=== PATIENT | male | born 2000 | race Caucasian/White ===

== ENCOUNTER 2024-02-22 17:24 | Emergency (ER) | payer OTHER ==
[~2024-02-22] VITALS: Ht 180.3 cm; Wt 61.6 kg
[2024-02-22] MEDS ORDERED: droPERidol 5 MG/2 ML VIAL IV ONE (17:45)
[2024-02-22] MEDS ORDERED: SODIUM CHLORIDE 0.9% 1,000 ML IV ONE ×2 (17:45)
[2024-02-22] MEDS ORDERED: PANTOPRAZOLE SODIUM 40 MG/10 ML VIAL IV ONE (17:45)
[2024-02-22] MEDS ORDERED: ondansetron HCL 4 MG/2 ML VIAL IV ONE (17:45)
[2024-02-22 17:52] LABS: BASOPHILS 0.7 % (0-2); EOSINOPHILS 0.1 % (0-6); HEMATOCRIT 44.7 % (35.0-50.0); HEMOGLOBIN 15.1 g/dL (12.0-18.0); LYMPHOCYTES 6.4 % (24-44); MCH 29.3 (27-36); MCHC 33.8 g/dl (30-36); MCV 86.8 fl (81-99); MONOCYTES 3.1 % (0-12); NEUTROPHILS 89.7 % (39-80); PLATELET COUNT 206 K/uL (140-440); RBC 5.15 M/ul (4.3-5.7)
[2024-02-22 18:07] LABS: ALBUMIN/GLOBULIN RATIO 1.39 (1.1-2.4); ANION GAP 22.7 (7-21); BILIRUBIN, TOTAL 1.2 ng/dL (0.2-1.0); BUN/CREATININE RATIO 14.28 (6.0-28.6); CALCIUM 10.6 mg/dL (8.5-10.1); CREATININE, SERUM 1.4 mg/dL (0.70-1.30); MAGNESIUM 1.7 mg/dL (1.8-2.4); POTASSIUM 3.7 mmol/L (3.5-5.1); PROTEIN, TOTAL 8.6 g/dL (6.4-8.2)
[2024-02-22] MEDS ORDERED: ONDANSETRON 4 MG HOME.PACK SL ONE (19:15)
[2024-02-22] MEDS ORDERED: ONDANSETRON ODT8 MG PO (19:34)
[2024-02-22 19:43] VITALS: BP 133/86
== END 2024-02-22 19:44 | disposition home or self-care (01) ==
LOC: ED 17:24
PROVIDERS: Emergency Medicine
DX: K29.70 Gastritis, unspecified, without bleeding (principal)
CPT/HCPCS: 36415; 80053; 83690; 83735; 85025; 96361; 96374; 96375; 99284-25; A9270; J1790; J2405; J2470; J7030